=== PATIENT | male | born 1975 | race Caucasian/White ===

== ENCOUNTER 2019-02-18 14:05 | Emergency (ER) | payer MEDICAID ==
[2019-02-18] MEDS ORDERED: Sodium Chloride 0.9% 1,000 ML IV ONE (14:14)
[2019-02-18 14:39] LABS: % BASOPHILS 0.5 % (0.0-2.0); % EOSINOPHILS 1.1 % (0.0-5.0); % MONOCYTES 2.5 % (2.0-10.0); % NEUTROPHILS 84.9 % (40.0-80.0); BASOPHILE ABSOLUTE 0.1 Th/cumm (0-0.2); EOSINOPHILE ABSOLUTE 0.1 Th/cmm (0.1-0.4); HEMATOCRIT 46.1 % (41.0-60); HEMOGLOBIN 15.7 gm/dL (12-16); LYMPHOCYTE ABSOLUTE 1.1 Th/cmm (1.5-3.0); MEAN CELL VOLUME 87.2 fl (80-99); MEAN CORPUSCULAR HEMOGLOBIN 29.7 pg (26.0-30.0); MONOCYTE ABSOLUTE 0.3 Th/cmm (0.3-1.0); NEUTROPHILE ABSOLUTE 8.6 Th/cmm (1.8-8.0); PLATELET COUNT 337 Th/cmm (150-400); RED BLOOD COUNT 5.29 Mil/cmm (4.30-5.70); RED CELL DISTRIBUTION WIDTH 12.6 % (11.5-20.0); WHITE BLOOD COUNT 10.2 Th/cmm (4.8-10.8)
[2019-02-18 14:47] LABS: INR 1.04 (0.5-1.4)
--- NOTE | 2019-02-18 14:47 | ED Physician Chart ---
ED Chief Complaint/HPI - Patient Information Date Seen:: 02/18/19 Time Seen:: 14:10 Chief Complaint:: Abdominal Pain History of Present Illness:: onset x 3 days of intermittent, diffuse, crampy, abdominal pain, N/V/D x 3; pt denies trauma, LOC, ALOC, AMS, decreased activity, visual or gait changes, weakness, dizziness, paresthesias, vertigo, H/As, E/As, S/T, neck pain, cough, C /P, SOB, A/C, fever, chills, bleeding, or urinary s/s; pt is eating and is urinating well; pt last urinated one hour [employer] Allergies:: Allergies Allergy/AdvReac Type Severity Reaction Status Date / Time No Known Allergies Allergy Verified 02/18/19 14:26 Vitals:: Vital Signs - 8 hr 02/18/19 02/18/19 14:13 14:27 Temp 99.0 F HR 72 83 RR 18 17 BP 149/95 149/95 O2 Sat % 97 96 Historian:: Patient, Family Member Review:: Nurse's Note Reviewed, Old Chart Reviewed ED Review of Systems - Review of Systems General/Constitutional: No fever, No chills, No weight loss, No weakness, No diaphoresis, No edema, No loss of appetite Skin: No skin lesions, No rash, No bruising Head: No headache, No light-headedness Eyes: No loss of vision, No pain, No diplopia ENT: No earache, No nasal drainage, No sore throat, No tinnitus Neck: No neck pain, No swelling, No thyromegaly, No stiffness, No mass noted Cardio Vascular: No chest pain, No palpitations, No PND, No orthopnea, No edema Pulmonary: No SOB, No cough, No sputum, No wheezing GI: No nausea, No vomiting, No diarrhea, No pain, No melena, No hematochezia, No constipation, No hematemesis G/U: No dysuria, No frequency, No hematuria, No nacturia Musculoskeletal: No bone or joint pain, No back pain, No muscle pain Endocrine: No polyuria, No polydipsia Psychiatric: No prior psych history, No depression, No anxiety, No suicidal ideation, No homicidal ideation, No auditory hallucination, No visual hallucination Hematopoietic: No bruising, No lymphadenopathy Allergic/Immuno: No urticaria, No angioedema Neurological: No syncope, No focal symptoms, No weakness, No paresthesia, No headache, No seizure, No dizziness, No confusion, No vertigo ED Past Medical History - Past Medical History Obtainable: Yes Past Medical History: HTN, PUD/GERD, Other (Cardiac Arrythmias) Family History: HTN Social History: Non Smoker, No Alcohol, Illicit Drug Use, Surgical History: None Psychiatricy History: None Medication: Reviewed ED Physical Exam - Physical Examination General/Constitutional: Awake, Well-developed, well-nourished, Alert, No distress, GCS 15, Non-toxic appearing, Ambulatory Head: Atraumatic Eyes: Lids, conjuctiva normal, PERRL, EOMI Skin: Nl inspection, No rash, No skin lesions, No ecchymosis, Well hydrated, No lymphadenopathy ENMT: External ears, nose nl, TM canals nl, Nasal exam nl, Lips, teeth, gums nl , Oropharynx nl, Tonsils nl Neck: Nontender, Full ROM w/o pain, No JVD, No nuchal rigidity, No bruit, No mass, No stridor Other Neck comments:: supple; no meningeal signs; no cervical tenderness; no bruits Respiratory: Nl effort/Exclusion, Clear to Auscultation, No Wheeze/Rhonchi/Rales Cardio Vascular: RRR, No murmur, gallop, rubs, NL S1 S2, Carotid/Femoral/Distal pulses equal bilaterally GI: No tenderness/rebounding/guarding, No organomegaly, No hernia, Normal BS's, Nondistended, No mass/bruits, No McBurney tenderness, Rectum exam nl Other GI comments:: no pulsatile masses; Stool: - OB; no tenderness : No CVA tenderness Extremities: No tenderness or effusion, Full ROM, normal strength in all extremities, No edema, Normal digits & nails Neuro/Psych: Alert/oriented, DTR's symmetric, Normal sensory exam, Normal motor strength, Judgement/insight normal, Mood normal, Normal gait, No focal deficits Other Neuro/Psych comments:: no focal signs Misc: Normal back, No paraspinal tenderness ED Labs/Radiology/EKG Results - Lab Results Results: Laboratory Tests 02/18/19 14:25 WBC 10.2 RBC 5.29 Hgb 15.7 Hct 46.1 MCV 87.2 MCH 29.7 MCHC Differential 34.0 RDW 12.6 Plt Count 337 MPV 8.1 Neutrophils % 84.9 H Lymphocytes % 11.0 L Monocytes % 2.5 Eosinophils % 1.1 Basophils % 0.5 Comments:: Reviewed - Radiology Results Comments:: Reviewed; NAD - EKG Interpretations EKG Time:: 14:20 Rate & Rhythm: 75; NSR Comments:: non-specific st-t changes ED Septic Shock - . Is Septic Shock (SBP<90, OR Lactate>4 mmol\L) present?: No - <6hrs of presentation: Vital Signs: Vital Signs - 8 hr 02/18/19 02/18/19 14:13 14:27 Temp 99.0 F HR 72 83 RR 18 17 BP 149/95 149/95 O2 Sat % 97 96 ED Reassessment (Disposition) - Reassessment Reassessment:: Final BP: 136/84; pt tolerated po fluids well in ER; pt is asymptomatic upon discharge Reassessment Condition:: Improved - Diagnosis Diagnosis:: Abdominal Pain; N/V/D; AGE; Gastritis; Hyperlipidemia; Hypertension; GERD; Substance Abuse; Viral Syndrome - Aftercare/Follow up Instructions Aftercare/Follow-Up Instructions:: Counseled pt regarding lab results/diagnosis & need follow up, Refer to Discharge Instructions, Counseled pt & family regarding lab results/diagnosis & need follow up Notes:: Have Blood Pressure re-checked in one day by PMD; X-Rays Instructions; Clear Liquid Diet; Encourage Fluids - Patient Disposition Discharge/Transfer:: Home Condition at Disposition:: Stable, Improved (RTER prn if existing s/s reoccur and/or get worse and/or any other new s/s occur; ACIs given for all above Dx; Refer to [facility] ELISA; refer to GI Specialist/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
--- NOTE | 2019-02-18 14:47 | Diagnostic Imaging Report ---
CHEST X-RAY: AP view INDICATION: pain COMPARISON: None FINDINGS: There is elevation of the right hemidiaphragm. There is no focal consolidation or pleural effusions The heart is normal in size. The osseous structures demonstrate no acute abnormalities. IMPRESSION: Elevation of the right hemidiaphragm. No focal consolidation identified.
[2019-02-18 14:55] LABS: ALB/GLOB RATIO 1.5 (1.0-1.8); ALBUMIN 4.6 gm/dL (4.2-5.5); ALKALINE PHOSPHATASE 70 U/L (34-104); AMYLASE SERUM 31 U/L (29-103); ANION GAP 14.5 (7.0-16.0); BILIRUBIN,TOTAL 0.5 mg/dL (0.3-1.0); BUN - UREA NITROGEN 14 mg/dL (7-25); CALCIUM SERUM 9.6 mg/dL (8.6-10.3); CARBON DIOXIDE 28.5 mEq/L (21.0-31.0); CHLORIDE 100 mEq/L (98-107); CHOLESTEROL 202 mg/dL (<200); CREATININE - SERUM 1.1 mg/dL (0.7-1.3); CREATININE KINASE 215 U/L (30-223); GFR AFRICAN-AMERICAN > 60.0 ml/min (>90); GFR NON AFRICAN-AMERICAN > 60.0 ml/min; GLUCOSE 110 mg/dL (70-105); HDL -HIGH DENSITY LIPOPROTEIN 30 mg/dL (23-92); LIPASE 17 U/L (11-82); SGOT 16 U/L (13-39); SGPT/ALT 24 U/L (7-52); SODIUM SERUM 139 mEq/L (136-145); TOTAL PROTEIN,SERUM 7.6 gm/dL (6.0-8.3); TRIGLYCERIDES 202 mg/dL (<150)
[2019-02-18 15:04] LABS: DDIMER QUANT 100 ng/mL (100-400)
[2019-02-18] MEDS ORDERED: IOHEXOL 300mgI/mL 100 ML VIAL ONE (16:28)
[2019-02-18 17:43] LABS: URINE SOURCE CLEAN C
[2019-02-18 17:51] LABS: URINE CLARITY CLEAR (CLEAR); URINE COLOR YELLOW; URINE GLUCOSE (UA) NEGATIVE (NEGATIVE)
[2019-02-18 17:52] LABS: URINE BILIRUBIN SMALL (NEGATIVE); URINE BLOOD NEGATIVE (NEGATIVE); URINE KETONE >=80 mg/dL (NEGATIVE)
[2019-02-18 17:54] LABS: URINE LEUKOCYTE ESTERASE NEGATIVE (NEGATIVE); URINE MICROSCOPIC INDICATED? YES; URINE NITRATE NEGATIVE (NEGATIVE); URINE PROTEIN TRACE mg/dL (NEGATIVE); URINE UROBILINOGEN 0.2 E.U./dL (0.2 - 1.0)
[2019-02-18 18:00] LABS: AMPHETAMINE URINE NEGATIVE (NEGATIVE); BARBITURATES URINE NEGATIVE (NEGATIVE); CANNABINOID THC POSITIVE (NEGATIVE); COCAINE METABOLITE QUAL URINE NEGATIVE (NEGATIVE); METHADONE URINE NEGATIVE (NEGATIVE); METHAMPHETAMINES QUAL URINE NEGATIVE (NEGATIVE); OPIATES (MORPHINE) QUAL. URINE NEGATIVE (NEGATIVE); PHENCYCLIDINE (PCP) URINE NEGATIVE (NEGATIVE); TRICYCLICS (TCA) QUAL. URINE NEGATIVE (NEGATIVE)
[2019-02-18 18:01] LABS: BENZODIAZEPINES QUAL URINE NEGATIVE (NEGATIVE)
[2019-02-18 18:06] LABS: URINE RBC 0-2 /hpf (0-5)
[2019-02-18 18:07] LABS: URINE EPITHELIAL CELLS RARE /lpf (FEW)
[2019-02-18 18:08] LABS: URINE BACTERIA 1+ /hpf (NONE SEEN)
--- NOTE | 2019-02-19 10:06 | Diagnostic Imaging Report ---
CT abdomen and pelvis without intravenous contrast Indication: Abdominal pain nausea and vomiting, left flank pain history of hiatal hernia and colitis Comparison: None, Technique: Axial images were obtained from the lung bases to the bilateral proximal femurs without IV contrast. Coronal reconstructions were made. total DLP: 728, CTDI13.6 FINDINGS: Hypoventilatory and atelectatic changes of the lung bases are noted. Assessment of the solid organs is limited due to lack of IV contrast. No evidence of focal hepatic, or splenic lesions. No focal pancreatic lesions. There is a 3.2 cm left adrenal Mass with areas of Hounsfield units less than 10. Mild left perinephric inflammatory changes are noted. No hydronephrosis or nephrolithiasis. There is mild diverticulosis. No diverticulitis. No evidence of appendicitis. No free fluid or free air. Mild degenerative changes of the spine are noted. IMPRESSION: Minimal left perinephric inflammatory changes. No evidence of hydronephrosis or renal stones Mild diverticulosis without evidence of diverticulitis. 3.2 cm left adrenal mass. 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 Please correlate with clinical history and with old exams. Given the size of this lesion, recommend short-term follow-up surveillance exam to ensure long-term stability.
== END 2019-02-18 18:53 | disposition home or self-care (01) ==
LOC: ER 14:05
DX: K21.9 Gastro-esophageal reflux disease without esophagitis (principal); I10 Essential (primary) hypertension; E78.5 Hyperlipidemia, unspecified; K29.70 Gastritis, unspecified, without bleeding; B34.9 Viral infection, unspecified; F19.10 Other psychoactive substance abuse, uncomplicated; Z91.013 Allergy to seafood
CPT/HCPCS: 36415-UA; 71045-TC; 80053-TC; 80061-TC; 80307; 81001-TC; 82150-TC; 82550-TC; 83690-TC; 83880-TC; 84484-TC; 85025-TC; 85379-TC; 85610-TC; 87086-90; 93005; 94760; J7030; Q9967